=== PATIENT | female | born 1955 | race Caucasian/White ===

== ENCOUNTER 2017-12-24 08:21 | Day surgery (SDC) | payer OTHER, SELFPAY ==
[2017-12-24 10:44] VITALS: BP 120/75; PULSE 83; RESP 15; TEMP 36.8; O2SAT 100; BMI 30.4
[2017-12-24] MEDS: PROPARACAINE 0.5% OPHTH SOL 2 DROPS EYE-OP (10:44)
[2017-12-24] MEDS: CATARACT EYE COMPOUND (10 DROPS/SYRINGE) 3 DROPS EYE-OP (10:50)
--- NOTE | 2017-12-24 11:53 | PM.PREOP ---
Pre-operative Note Interval Note Changes: No
--- NOTE | 2017-12-24 11:54 | P.OP.PRE_ITS ---
Pre-operative Note Interval Note Changes: No
--- NOTE | 2017-12-24 11:55 | P.OP_ITS ---
Operative Date/Time/Diagnoses Pre-op diagnosis: Cataract Left eye Post-op diagnosis: same Procedure & Clinicians Surgeon: Jeanmarie Ojeda Anesthesia Type: MAC +/- and Sedation Operative Notes Procedure in detail: Patient brought to the operating suite. Tetracaine drops placed in the left eye. Patient was prepped and draped in sterile manner. Wire lid speculum was placed in the eye. Betadine drops were placed on the eye. This was irrigated. Lidocaine jelly was placed on the eye. A paracentesis port was created with a side-port blade. 0.1 mL 1% preservative free lidocaine was injected into the anterior chamber. The anterior chamber was deepened with viscoelastic. 2.6 mm keratome was used to create a temporal clear corneal incision. Cystotome and Utrata forceps were used to create continuous tear capsulorrhexis. Balanced salt solution was used to hydro dissect the nucleus. The phacoemulsification handpiece was inserted and the nucleus was removed using the stop and chop technique. The irrigation aspiration handpiece was inserted and the remaining cortex was removed. Anterior chamber was deepened with viscoelastic. An Mac ZCB00 intraocular lens with a power of 20.5 was injected into the capsular bag. Irrigation aspiration handpiece was inserted and the remaining viscoelastic was removed. Incision was hydrated with balanced salt solution and found to be leak free with pressure with Weck- Zenaida sponges. 0.1 mL Vigamox injected anterior chamber. 0.3 mL Kenalog 10 mg was injected subconjunctivally. Lid speculum was removed. The patient left the operating room in excellent condition. Complications: none Condition: stable Disposition: same day surgery
[2017-12-24] MEDS: CHONDROIDTIN/SOD HYALURONATE 1.05 ML SYRINGE INTRAOCULA (12:10)
[2017-12-24] MEDS: LIDOCAINE JELLY 2% 5 ML 1 APPLIC TOP (12:11)
[2017-12-24] MEDS: MOXIFLOXACIN OPHTH DROPS 3 ML BOTTLE 2 DROPS INJ (12:12)
[2017-12-24] MEDS: PHENYLEPHRINE/LIDOCAINE VIAL (OR) 0.2 ML EYE-OP (12:12)
[2017-12-24] MEDS: TETRACAINE 0.5% OPHTH DROPS 15 ML 2 DROPS EYE-LEFT (12:13)
[2017-12-24] MEDS: TRIAMCINOLONE 50 MG/5 ML VIAL INJ (12:13)
[2017-12-24] MEDS: BALANCED SALT IRRIG SOLN NO.2 500 ML, EPINEPHrine 1 MG IRR (12:13)
[2017-12-24 12:27] VITALS: BP 120/75; PULSE 83; RESP 15; TEMP 36.8; O2SAT 100
== END 2017-12-24 12:37 ==
LOC: OR 08:24
PROVIDERS: Visit Provider Ophthalmology
DX: H25.12 Age-related nuclear cataract, left eye (principal); F41.9 Anxiety disorder, unspecified; I10 Essential (primary) hypertension
CPT/HCPCS: J0171; J2250; J3010; J3301